=== PATIENT | female | born 1945 | race Caucasian/White ===

== ENCOUNTER → 2021-09-06 | Emergency (ER) | payer BC ==
[~2021-09-06] VITALS: Ht 165.1 cm; Wt 52.2 kg
[~2021-09-06] MED LIST: CHILDREN'S ASPI81 MG; TOPROL XL50 M1
== END | disposition left against medical advice (07) ==
LOC: ER 16:48
DX: Z53.21 Procedure and treatment not carried out due to patient leaving prior to being seen by health care provider (principal)